=== PATIENT | female | born 1945 | race Caucasian/White ===

== ENCOUNTER 2017-01-14 07:27 | Day surgery (SDC) | payer MEDICARE, BC ==
[~2017-01-14 07:27] MED LIST: Buffered Lidocaine 0.9% SYRIN* 5 ML/SYR SYRINGE INTRADERM ONE
[2017-01-14] MEDS ORDERED: ceFAZolin 2 GM PREMIX (*) 0 ML IVPB ONE (07:32)
[2017-01-14] MEDS ORDERED: ceFAZolin 2 GM PREMIX (*) 50 ML IVPB ONE (07:40)
[2017-01-14] MEDS ORDERED: Bupivacaine 0.25% SDV* 30 ML ONE (08:21)
[2017-01-14] MEDS ORDERED: Sodium Bicarbonate 8.4%* 50 ML SYRINGE ONE (08:21)
[2017-01-14] MEDS ORDERED: Lidocaine 1% INJ* 10 MG/ML 30 ML SDV ONE (08:22)
[2017-01-14] MEDS ORDERED: Sodium Bicarbonate 8.4% IV* 50 ML VIAL ONE (08:23)
[2017-01-14] MEDS ORDERED: Cephalexin CAP* 500 MG ONE (08:26)
[2017-01-14 09:19] VITALS: BP 153/78
== END 2017-01-14 09:29 | disposition home or self-care (01) ==
LOC: OREAST 07:27
PROVIDERS: ATTEND Plastic Surgery
DX: G56.01 Carpal tunnel syndrome, right upper limb (principal); M19.041 Primary osteoarthritis, right hand; E03.9 Hypothyroidism, unspecified; I10 Essential (primary) hypertension; M93.90 Osteochondropathy, unspecified of unspecified site; F17.210 Nicotine dependence, cigarettes, uncomplicated
CPT/HCPCS: A9270-GY; J0690; J2001

== ENCOUNTER → 2018-01-20 05:53 | Day surgery (SDC) | payer MEDICARE, BC ==
[~2018-01-20 05:53] MED LIST changes: +Bupivacaine 0.25% EPI 200,000* 30 ML SDV ONE; +Bupivacaine 0.25% SDV* 30 ML ONE; +Lidocain 1% EPI 1:100,000 * 30 ML MDV ONE; +Lidocaine 1% INJ* 10 MG/ML 30 ML SDV ONE; +Methylene Blue 0.5 %* 50 MG/10 ML AMP IV ONE; +Mineral Oil Sterile, TOPICAL* 25 ML BTL ONE; +Sodium Bicarbonate 8.4% SYR* 10 ML SYRINGE ONE; +Sodium Bicarbonate 8.4%* 50 ML SYRINGE ONE; +ceFAZolin 2 GM in NS PREMIX(*) 2 GM/100 ML BAG IVPB ONE
[2018-01-20 06:29] VITALS: BP 133/65
== END | disposition home or self-care (01) ==
LOC: OR 05:53
PROVIDERS: ATTEND Plastic Surgery
DX: G56.02 Carpal tunnel syndrome, left upper limb (principal); E03.9 Hypothyroidism, unspecified; I10 Essential (primary) hypertension; Z72.0 Tobacco use
CPT/HCPCS: A9270-GY; J0690